=== PATIENT | female | born 1990 | race African-American/Black ===

== ENCOUNTER → 2024-08-24 | Day surgery (SDC) | payer OTHER | END | disposition home or self-care (01) | LOC: JRADIR 10:34 | PROVIDERS: ATTEND Internal Medicine Endocrinology, Diabetes & Metabolism | PROC: 0G9H3ZX Drainage of Right Thyroid Gland Lobe, Percutaneous Approach, Diagnostic (ICD-10-PCS; principal; 2024-08-24) | DX: E04.1 Nontoxic single thyroid nodule (principal) | CPT/HCPCS: 10005; 76942; 88173; 88305-TC ==